=== PATIENT | female | born 1955 | race Caucasian/White ===

== ENCOUNTER 2020-11-11 19:26 | Emergency (ER) | payer MEDICARE, OTHER ==
[2020-11-11 20:05] VITALS: BP 117/78; PULSE 78; TEMP 98.1; BMI 22.4
== END 2020-11-11 21:03 | disposition home or self-care (01) ==
LOC: JER 19:26 → JERFT 19:26
DX: H10.31 Unspecified acute conjunctivitis, right eye (principal)
CPT/HCPCS: 99283-25